=== PATIENT | male | born 1965 | race Caucasian/White ===

== ENCOUNTER → 2022-05-09 | Day surgery (SDC) | payer OTHER ==
[~2022-05-09] VITALS: Ht 188 cm; Wt 106.6 kg
[~2022-05-09] MED LIST: AMOXICILLIN500 MG PO; ASPIRIN81 MG PO; ENTRESTO 24 MG1 EACH PO; GABAPENTIN600 MG PO; NORCO 5-325 TA1 EAC1 PO; NORVASC 10MG TA10 MG PO
[2022-05-09 09:13] LABS: BASOPHIL 0.9 % (0-2); EOSINOPHIL 1.9 % (0-5); HCT 47.7 % (42.0-52.0); HGB 16.5 g/dl (13.2-18.0); LYMPHOCYTE 26.1 % (15-48); MCH 31.5 pg (25.0-31.0); MCHC 34.6 g/dL (32.0-36.0); MCV 91.2 fL (78.0-100.0); MONOCYTE 9.2 % (0-12); MPV 9.2 fL (6.0-9.5); NEUTROPHIL 61.5 % (41-80); NRBC 0; PLT 309 K/uL (150-400); RBC 5.23 M/uL (4.70-6.00); RDW 12.9 % (11.5-14.0); WBC 8.1 K/uL (4.0-10.5)
[2022-05-09 09:25] LABS: INR 0.98 (0.9-1.2); PROTHROMBIN TIME 12.7 SECONDS (11.9-13.9); PTT 27.4 SECONDS (24.9-34.6)
[2022-05-09 09:39] LABS: BUN/CREAT RATIO (CALC) 13.9 RATIO; CREATININE 0.79 mg/dL (0.67-1.17)
== END | disposition home or self-care (01) ==
LOC: FAS 08:07
PROVIDERS: Anesthesiology; Oral & Maxillofacial Surgery
DX: K02.9 Dental caries, unspecified (principal); K04.7 Periapical abscess without sinus; I11.0 Hypertensive heart disease with heart failure; I50.22 Chronic systolic (congestive) heart failure; I42.0 Dilated cardiomyopathy; E03.9 Hypothyroidism, unspecified; I25.10 Atherosclerotic heart disease of native coronary artery without angina pectoris; F32.A Depression, unspecified; F41.9 Anxiety disorder, unspecified; F17.210 Nicotine dependence, cigarettes, uncomplicated; E78.5 Hyperlipidemia, unspecified
CPT/HCPCS: D7140; D7210; D7310; 36415; 71045; 80048; 85025; 85610; 85730; 93005; J1100; J1170; J2250; J2370; J2405; J2704; J3010; J7120